=== PATIENT | female | born 2000 | race Caucasian/White ===

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

== ENCOUNTER 2023-04-28 12:00 | Emergency (ER) | payer OTHER ==
[2023-04-28 12:13] VITALS: BP 115/79; PULSE 68; RESP 18; TEMP 98.2; BMI 19.1
[2023-04-28] MEDS ORDERED: ACETAMINOPHEN 325 MG TABLET (FP) PO ONE (13:10)
[2023-04-28 13:58] LABS: BASO % 0.6 % (0-2.0); EOS % 3.5 % (0-4.5); HEMATOCRIT 37.6 % (32.4-45.2); HEMOGLOBIN 13.2 GM/dL (10.7-15.3); MCH 29.7 pg (25.7-33.7); MEAN CELL VOLUME 84.8 fl (80-96); MEAN PLT VOLUME 10.4 fl (7.5-11.1); MONO % 5.4 % (3.8-10.2); NEUT % 55.5 % (42.8-82.8); PLATELET COUNT 184 10^3/uL (134-434); RBC 4.44 M/mm3 (3.60-5.2); RDW 12.4 % (11.6-15.6); WHITE BLOOD COUNT 8.7 K/mm3 (4.0-10.0)
[2023-04-28] MEDS ORDERED: ACETAMINOPHEN 325 MG TABLET (FP) ONE (14:08)
[2023-04-28 14:16] LABS: POTASSIUM 4.5 mmol/L (3.5-5.1)
[2023-04-28 14:18] LABS: ALBUMIN 3.8 g/dl (3.4-5.0); CALCIUM 9.4 mg/dL (8.5-10.1)
[2023-04-28 14:19] LABS: BLOOD UREA NITROGEN 8.9 mg/dL (7-18)
[2023-04-28 14:21] LABS: CREATININE 0.5 mg/dL (0.55-1.3)
[2023-04-28 14:23] LABS: BILIRUBIN,TOTAL 0.7 mg/dL (0.2-1); TOT PROT 7.8 g/dl (6.4-8.2)
== END 2023-04-28 15:25 | disposition home or self-care (01) ==
LOC: JER 12:00
DX: R00.2 Palpitations (principal); R07.89 Other chest pain
CPT/HCPCS: 36415; 71046-TC-FY; 80053; 84484; 84702; 85025; 93005; 93010; 99285-25